=== PATIENT | female | born 1985 ===

== ENCOUNTER 2022-02-22 11:22 | Outpatient (CLI) | payer OTHER | END 2022-02-22 12:09 | disposition home or self-care (01) | LOC: PRENATAL 11:22 | PROVIDERS: ATTEND Obstetrics & Gynecology Maternal & Fetal Medicine | DX: O36.80X0 Pregnancy with inconclusive fetal viability, not applicable or unspecified (principal); O09.519 Supervision of elderly primigravida, unspecified trimester; Z3A.09 9 weeks gestation of pregnancy ==

== ENCOUNTER 2022-03-29 15:00 | Outpatient (CLI) | payer OTHER | END 2022-03-29 16:49 | disposition home or self-care (01) | LOC: PRENATAL 15:00 | PROVIDERS: ATTEND Obstetrics & Gynecology Maternal & Fetal Medicine | DX: O36.80X0 Pregnancy with inconclusive fetal viability, not applicable or unspecified (principal); O09.519 Supervision of elderly primigravida, unspecified trimester; Z3A.14 14 weeks gestation of pregnancy ==

== ENCOUNTER 2022-05-06 15:08 | Outpatient (CLI) | payer OTHER | END 2022-05-06 16:45 | disposition home or self-care (01) | LOC: PRENATAL 15:08 | PROVIDERS: ATTEND Obstetrics & Gynecology Maternal & Fetal Medicine | DX: O35.3XX0 Maternal care for (suspected) damage to fetus from viral disease in mother, not applicable or unspecified (principal); O35.9XX0 Maternal care for (suspected) fetal abnormality and damage, unspecified, not applicable or unspecified; O09.519 Supervision of elderly primigravida, unspecified trimester; Z3A.20 20 weeks gestation of pregnancy ==

== ENCOUNTER 2022-07-28 09:55 | Outpatient (CLI) | payer OTHER | END 2022-07-28 10:55 | disposition home or self-care (01) | LOC: PRENATAL 09:55 | PROVIDERS: ATTEND Obstetrics & Gynecology Maternal & Fetal Medicine | DX: O26.843 Uterine size-date discrepancy, third trimester (principal); O36.8199 Decreased fetal movements, unspecified trimester, other fetus; O09.519 Supervision of elderly primigravida, unspecified trimester; Z14.8 Genetic carrier of other disease; Z3A.31 31 weeks gestation of pregnancy ==

== ENCOUNTER 2022-09-15 16:23 | Inpatient (IN) | payer OTHER ==
[~2022-09-15] VITALS: Ht 152.4 cm; Wt 68.5 kg
[2022-09-21] MEDS ORDERED: VITAMIN C60 MG PO (06:53)
[2022-09-21] MEDS ORDERED: FOLIC ACID20 MG PO (06:53)
[2022-09-21] MEDS ORDERED: PRENATAL TABLE1 EAC1 PO (06:53)
== END 2022-09-23 12:47 | disposition home or self-care (01) | DRG 807 ==
LOC: LDR 09-21 06:04 → OB/GYN 09-21 13:00
PROVIDERS: ADMIT Obstetrics & Gynecology; ATTEND Obstetrics & Gynecology
PROC: 10E0XZZ Delivery of Products of Conception, External Approach (ICD-10-PCS; principal; 2022-09-21)
PROC: 0UQG7ZZ Repair Vagina, Via Natural or Artificial Opening (ICD-10-PCS; 2022-09-21)
PROC: 4A1HXCZ Monitoring of Products of Conception, Cardiac Rate, External Approach (ICD-10-PCS; 2022-09-21)
DX: O71.4 Obstetric high vaginal laceration alone (principal); Z37.0 Single live birth; Z3A.39 39 weeks gestation of pregnancy; Z20.822 Contact with and (suspected) exposure to COVID-19

== ENCOUNTER 2025-03-22 10:06 | Outpatient (CLI) | payer OTHER ==
[~2025-03-22 10:06] MED LIST: FOLIC ACID20 MG PO; PRENATAL TABLE1 EAC1 PO; VITAMIN C60 MG PO
== END 2025-03-22 10:12 | disposition home or self-care (01) ==
LOC: PRENATAL 10:06
PROVIDERS: ATTEND Obstetrics & Gynecology Maternal & Fetal Medicine
DX: O36.80X0 Pregnancy with inconclusive fetal viability, not applicable or unspecified (principal); Z36.82 Encounter for antenatal screening for nuchal translucency; O09.521 Supervision of elderly multigravida, first trimester; Z3A.12 12 weeks gestation of pregnancy